=== PATIENT | male | born 1950 | race Caucasian/White ===

== ENCOUNTER 2016-11-17 16:43 | Emergency (ER) | payer OTHER ==
[~2016-11-17] VITALS: Ht 177.8 cm; Wt 93.9 kg
[~2016-11-17 16:43] MED LIST: ASPEC81 PO; EZET10TA63 PO; FISHOIL; NASAL SPRAY; [UNRECOGNIZED DRUG - OTHER]
[2016-11-17 16:56] VITALS: TEMP 36.9; Ht 177.8 cm; Wt 93.9 kg
[2016-11-17] MEDS ORDERED: MULT-506 PO (18:07)
[2016-11-17] MEDS ORDERED: ATOR10TA88 PO (18:07)
[2016-11-17] MEDS ORDERED: LISI10TA PO (18:07)
[2016-11-17] MEDS ORDERED: ASPI81TA21 PO (18:07)
--- NOTE | 2016-11-17 18:52 | DIAGNOSTIC IMAGING REPORT ---
Venous Doppler right leg RIGHT VENOUS DOPP LOWER EXT UNILAT CLINICAL HISTORY: Pain. Edema. TECHNIQUE: Doppler ultrasound COMPARISON STUDY: None FINDINGS: Chronic scarring several veins. IMPRESSION: No evidence for acute deep venous thrombosis. Electronically signed by: Aidan Bryant M.D. 11/17/2016 6:51 PM Dictated Date/Time: 11/17/2016 6:50 PM
--- NOTE | 2016-11-17 19:06 | EMERGENCY ROOM VISIT NOTE ---
ED Visit Note First contact with patient: 17:07 CHIEF COMPLAINT: Right leg pain times several days HISTORY OF PRESENT ILLNESS: Patient is a 66-year-old white male with past medical history significant for a right lower extremity DVT in 2001 who presents to the emergency department for evaluation of an aching pain in his right thigh over the last several days. He notes he has had intermittent problems with leg pain since the DVT. He notes a aching pain in his medial right thigh. He occasionally will have a vein that becomes more prominent. He did travel by plane to [place] and [place] in the end of October. He denies any symptoms in the left leg. He denies any chest pain, palpitations or shortness of breath. There has been no injury to the leg, no fever, and no unusual activity which may have strained a muscle recently. He normally only walks about 4 miles per day with his and has been able to do this without difficulty although he did not walk the entire today because he "did not want to overdo it." He rates his discomfort a 1/10. He takes a baby aspirin daily. REVIEW OF SYSTEMS: Review of systems as per HPI. All other systems reviewed were negative. 10 systems reviewed. PMH: Electronic medical records are reviewed and summarized as above/below. See Problem List. SOCIAL HISTORY: Patient lives at home with his . Nonsmoker.. PHYSICAL EXAM: Vital Signs: Reviewed Nurse's notes. CONSTITUTIONAL: Patient is a pleasant, well-appearing 66-year-old white male who is awake and alert and in no acute distress. HEART: Regular rate and rhythm. LUNGS: Clear to auscultation NEUROLOGICAL: Alert oriented, coherent. PERRL, EOMs full, gait normal. EXTREMITIES: No cyanosis, edema, joint tenderness or effusion. No erythema, increased warmth or induration. Pulses equal bilaterally. The calves are soft and nontender bilaterally. The patient does have some minor venous stasis changes noted in the anterior pretibial area, symmetrical bilaterally. He has some prominent varicosities which are palpable, no cords or tenderness. No lymphangitic streaking. EMERGENCY DEPARTMENT COURSE: The patient was seen and examined as above. His old records were reviewed. Ultrasound of the right lower extremity was obtained. Chronic scarring was noted, but no evidence for acute DVT. The patient was reassured. Differential diagnoses entertained included DVT, superficial dermatitis, venous insufficiency, muscle strain, cellulitis, among others. He was encouraged to use [id number] medications as needed for discomfort. Follow-up with his PCP if his symptoms are not improving. Venous Doppler right leg RIGHT VENOUS DOPP LOWER EXT UNILAT CLINICAL HISTORY: Pain. Edema. TECHNIQUE: Doppler ultrasound COMPARISON STUDY: None FINDINGS: Chronic scarring several veins. IMPRESSION: No evidence for acute deep venous thrombosis. Problem List Medical Problems: (1) Calculus Of Ureter Status: Resolved (2) Diverticulosis Colon (W/O Ment Of Hemorrhage) Status: Resolved (3) Pure Hypercholesterolem Status: Chronic (4) Juarez Embolism & Thromb Of Unsp Deep Vessels Of Low Extremity Status: Resolved Current/Historical Medications Scheduled Aspirin Enteric Coated (Ecotrin Or Generic), 81 MG PO DAILY Atorvastatin (Lipitor), 10 MG PO DAILY Multivitamin (Multivitamin), 1 TAB PO DAILY Allergies Coded Allergies: No Known Allergies (Verified , 11/17/16) Vital Signs Date Time Temp Pulse Resp B/P Pulse Ox O2 Delivery O2 Flow Rate FiO2 11/17/16 18:14 66 18 146/94 97 Room Air 11/17/16 16:56 36.9 67 20 190/101 97 Room Air Departure Information Impression Primary Impression: Leg pain, right Referrals Navarro Crespo MD (PCP) Patient Instructions My [facility] Additional Instructions Ibuprofen(Motrin, Advil) may be used for fever or pain. Use 600mg every six hours as needed. Take with food. Avoid using more than 2400mg in a 24 hour period. Do not use 2400mg per day for more than three consecutive days without physician direction. Prolonged inappropriate use can lead to stomach upset or ulcers. This medication can be taken if you need to drive, work, or perform activities which may be dangerous when taking narcotic pain medication. (AND/OR) Acetaminophen(Tylenol) may be used for fever or pain. Use 1000mg every six hours as needed. Avoid using more than 3000mg in a 24 hour period. This medication can be taken if you need to drive, work, or perform activities which may be dangerous when taking narcotic pain medication. Activity as tolerated. Continue current medications. Return to the ER immediately for any numbness, tingling, severe pain, extreme swelling in the extremity or as needed. Follow up with your primary care physician as needed.
--- NOTE | 2016-11-17 19:17 | EMERGENCY ROOM VISIT NOTE ---
ED Visit Note First contact with patient: 19:09 This Patient was discussed with the physician Head Of It, Isha Alexandra PA-C. The pertinent historical and physical exam findings were confirmed. I agree with the studies ordered and with the interpretations of these studies. I agree with the disposition and care plan.
[2016-11-17 19:30] VITALS: BP 165/96; PULSE 68; O2SAT 95
== END 2016-11-17 19:30 | disposition home or self-care (01) ==
LOC: C.EDB 16:46 → C.EDD 19:30
DX: M79.604 Pain in right leg (principal); E78.00 Pure hypercholesterolemia, unspecified; K57.30 Diverticulosis of large intestine without perforation or abscess without bleeding; Z87.442 Personal history of urinary calculi; Z86.718 Personal history of other venous thrombosis and embolism; Z79.82 Long term (current) use of aspirin; Z79.899 Other long term (current) drug therapy